=== PATIENT | female | born 1970 ===

== ENCOUNTER 2019-06-07 07:27 | Day surgery (SDC) | payer OTHER ==
[~2019-06-07 07:27] MED LIST: VALSARTAN160 MG PO
[2019-06-07] MEDS ORDERED: NAPROXEN375 MG PO (12:05)
[2019-06-07] MEDS ORDERED: FLAGYL500MG PO (12:06)
== END 2019-06-07 14:10 | disposition home or self-care (01) ==
LOC: CIR.AMB 07:27
DX: D26.1 Other benign neoplasm of corpus uteri (principal); N85.8 Other specified noninflammatory disorders of uterus